=== PATIENT | male | born 1985 | race African-American/Black ===

== ENCOUNTER 2021-12-20 07:49 | Emergency (ER) | payer OTHER ==
[~2021-12-20] VITALS: Ht 185.4 cm; Wt 113.0 kg
[2021-12-20 07:51] VITALS: BP 138/88
[2021-12-20] MEDS ORDERED: DICYCLOMINE 10 MG/5 ML ORAL SYR PO STA (08:36)
[2021-12-20] MEDS ORDERED: MAGNESIUM/ALUMINUM HYDROXIDE/SIMETHICONE 30ML UDC PO STA (08:36)
[2021-12-20] MEDS ORDERED: ACETAMINOPHEN 325MG TABLET PO STA (08:36)
[2021-12-20 09:09] LABS: BASOPHILS % 0.5 % (0.0-2.0); EOSINOPHILS % 1.6 % (0.0-5.0); HEMATOCRIT. 45.9 % (42.0-52.0); HEMOGLOBIN. 15.9 g/dL (14.0-18.0); LYMPHOCYTES % 29.4 % (20.0-50.0); MEAN CORPUSCULAR VOLUME 86.4 fL (80.0-94.0); MEAN PLATELET VOLUME 7.6 fl (7.4-10.4); MONOCYTES % 7.4 % (2.0-8.0); NEUTROPHILS % 61.1 % (40.0-76.0); PLATELET 229 x1000/uL (130-400); RED BLOOD CELL COUNT 5.31 mill/uL (4.7-6.1); RED CELL DISTRIBUTION WIDTH 13.1 % (11.6-14.6)
[2021-12-20 09:16] LABS: CHLORIDE 110 mEq/L (98-107)
[2021-12-20] MEDS ORDERED: MORPHINE SULFATE 4 MG/ML CPJ (NOT FOR IM USE) IV ONE (11:00)
[2021-12-20] MEDS ORDERED: IOHEXOL-300 100 ML BOTTLE ONE (11:33)
[2021-12-20] MEDS ORDERED: DICY10CA88 MT (12:18)
== END 2021-12-20 12:42 | disposition home or self-care (01) ==
LOC: ER 07:49
DX: R10.32 Left lower quadrant pain (principal); I10 Essential (primary) hypertension
CPT/HCPCS: 36415; 74177; 80053; 83690; 85025; 93005; 96374; 99285; J2270; Q9967